=== PATIENT | male | born 1965 | race Caucasian/White ===

== ENCOUNTER → 2019-11-06 11:48 | Outpatient (CLI) | payer OTHER, SELFPAY ==
[2019-11-06 14:21] LABS: Cholesterol 297 mg/dL (140-199); Glucose 94 mg/dL (70-100); HDL Cholesterol 56 mg/dL (40-60); LDL Cholesterol Calculated 208 mg/dL (<100); Triglycerides 167 mg/dL (35-150)
== END ==
PROVIDERS: Visit Provider Family Medicine
DX: Z13.220 Encounter for screening for lipoid disorders (principal); Z13.1 Encounter for screening for diabetes mellitus
CPT/HCPCS: 36415; 80061; 82947

== ENCOUNTER → 2019-12-01 08:25 | Outpatient (CLI) | payer OTHER, SELFPAY | PROVIDERS: Visit Provider Family Medicine | DX: Z12.11 Encounter for screening for malignant neoplasm of colon (principal) ==

== ENCOUNTER → 2019-12-23 13:54 | Outpatient (CLI) | payer OTHER, SELFPAY ==
[2019-12-26 16:17] LABS: Fecal Immunochemical Test NOT DETECTED (NOT DETECTED)
== END ==
PROVIDERS: PCP Family Medicine; Referring Provider Family Medicine; Visit Provider Family Medicine
DX: Z12.11 Encounter for screening for malignant neoplasm of colon (principal)
CPT/HCPCS: 82274

== ENCOUNTER → 2020-01-14 11:59 | Outpatient (CLI) | payer OTHER, SELFPAY ==
--- NOTE | 2020-01-14 | DI.MRI.S_ITS ---
PROCEDURE: MR LUMBAR SPINE WO CON INDICATIONS: Low back pain TECHNIQUE: Noncontrast sagittal T1 spin echo and T2 fast echo, sagittal STIR, axial T1 and T2 fast spin echo through the lumbar spine. In cases with scoliosis, additional coronal T2 fast spin echo may be performed. COMPARISON: [facility] [place], CR, XR LUMBAR SPINE WITH OLBIQUES PLUS FLEXION EXTENSION, 01/11/2020, 9:20. FINDINGS: Image quality: Excellent. Alignment and Curvature: There is grade 1 anterolisthesis of L4 on L5 and grade 1 retrolisthesis of L5 on S1. Bone Marrow: Marrow is of normal overall signal. No acute vertebral body compression fractures. Spinal Cord: Conus medullaris terminates at the T12-L1 level. Visualized cord demonstrates normal signal and size. Paraspinous Soft Tissues: No paravertebral masses. There are small renal cysts. L1-L2: Normal appearance. L2-L3: Normal appearance. L3-L4: Mild loss of disc height and disc desiccation. There is diffuse posterior disc bulge and probable small posterior central annular fissure. Mild bilateral facet arthropathy. The central canal is mildly narrowed. No significant foraminal stenosis. L4-L5: Mild loss of disc height and disc desiccation. There is diffuse posterior disc bulge. Moderate to severe bilateral facet arthropathy. The central canal is mildly narrowed. No significant foraminal stenosis. L5-S1: Preserved disc height. Moderate disc desiccation. There is diffuse posterior disc bulge. Moderate to severe bilateral facet arthropathy. The central canal is patent. No significant foraminal stenosis. IMPRESSION: 1. Multilevel degenerative disc disease and facet arthropathy as described. 2. Mild central canal stenosis at L3-L4 and L4-L5. 3. No significant foraminal stenosis. Dictated by: Benson Roche M.D. on 01/14/2020 at 16:20 Approved by: Benson Roche M.D. on 01/14/2020 at 18:00
== END ==
PROVIDERS: PCP Family Medicine; Referring Provider Physical Medicine & Rehabilitation Pain Medicine; Visit Provider Physical Medicine & Rehabilitation Pain Medicine
DX: M54.5 Low back pain (principal); M43.16 Spondylolisthesis, lumbar region; M43.17 Spondylolisthesis, lumbosacral region; M51.36 Other intervertebral disc degeneration, lumbar region; M51.37 Other intervertebral disc degeneration, lumbosacral region; M47.816 Spondylosis without myelopathy or radiculopathy, lumbar region; M47.817 Spondylosis without myelopathy or radiculopathy, lumbosacral region; M48.061 Spinal stenosis, lumbar region without neurogenic claudication
CPT/HCPCS: 72148

== ENCOUNTER → 2021-08-03 12:36 | Outpatient (CLI) | payer OTHER, SELFPAY ==
--- NOTE | 2021-08-03 12:38 | DI.US.S_ITS ---
PROCEDURE: US BREAST RT LIMITED COMPARISON: None. INDICATIONS: PALPABLE LUMP FINDINGS: IMPRESSION: Dictated by: Ozzie Crain M.D. on 08/03/2021 at 14:35 Approved by: Ozzie Crain M.D. on 08/03/2021 at 14:41
--- NOTE | 2021-08-03 12:38 | DI.MG.S_ITS ---
MALE BILATERAL DIGITAL DIAGNOSTIC MAMMOGRAM 3D/2D: 08/03/2021 CLINICAL: Right breast lump. Baseline exam. No prior exams were available for comparison. There is a new 4.3 cm x 3.7 cm x 1.1 cm irregular asymmetry with an indistinct margin in the right breast at 9 o'clock anterior depth. No other significant masses, calcifications, or other findings are seen in either breast. IMPRESSION: INCOMPLETE: NEEDS ADDITIONAL IMAGING EVALUATION The new 4.3 cm x 3.7 cm x 1.1 cm irregular eccentricallly located asymmetry in the right breast is indeterminate. This exam was interpreted at Station ID: [id number]. NOTE: For mammograms, a report in lay terms will be sent to the patient. Approximately 15% of breast malignancies will not be visualized mammographically. In the management of a palpable breast mass, a negative mammogram must not discourage biopsy of a clinically suspicious lesion. Electronically Signed By: Ozzie Crain acr/:08/03/2021 15:02:35 Entry: - 08/04/2021 08:30:34 ACR BI-RADS Category 0: Incomplete [id number]
== END ==
PROVIDERS: PCP Family Medicine; Referring Provider Family Medicine; Visit Provider Family Medicine
DX: N63.15 Unspecified lump in the right breast, overlapping quadrants (principal); R92.8 Other abnormal and inconclusive findings on diagnostic imaging of breast
CPT/HCPCS: 76642; 77066; G0279

== ENCOUNTER → 2022-12-19 14:03 | Outpatient (CLI) | payer OTHER, SELFPAY ==
--- NOTE | 2022-12-19 14:05 | DI.RAD.S_ITS ---
PROCEDURE: XR LUMBAR SPINE MIN 4V INDICATIONS: lumbar pain TECHNIQUE: 5 views of the lumbar spine were acquired, including bilateral oblique views. COMPARISON: [facility] [place], [place]Y, XR LUMBAR SPINE WITH OLBIQUES PLUS FLEXION EXTENSION, 01/11/2020, 9:20. FINDINGS: Bones: Five nonrib-bearing vertebrae are present. There is 4 mm grade 1 anterolisthesis of L4 on L5. No vertebral body compression fractures. No suspicious bony lesions. Mild multilevel disc space narrowing degenerative endplate changes. Multilevel facet hypertrophy is most prominent at the L4-5 level. Soft tissues: Overlying bowel gas pattern is normal. No suspicious soft tissue calcifications. Oblique images: No pars defects. IMPRESSION: Multilevel spondylosis and degenerative spondylolisthesis. MRI of the lumbar spine could be performed for further evaluation if indicated clinically. Findings have mildly progressed when compared to the radiographs from 01/11/2020. Approved by: Jeb Sun M.D. on 12/19/2022 at 16:23
== END ==
PROVIDERS: PCP Family Medicine; Referring Provider Physician Assistant; Visit Provider Physician Assistant
DX: M47.816 Spondylosis without myelopathy or radiculopathy, lumbar region (principal); M43.16 Spondylolisthesis, lumbar region; M54.9 Dorsalgia, unspecified
CPT/HCPCS: 72110

== ENCOUNTER → 2023-01-09 12:15 | Outpatient (CLI) | payer OTHER, SELFPAY ==
--- NOTE | 2023-01-09 12:16 | DI.MRI.S_ITS ---
PROCEDURE: MR LUMBAR SPINE WO CON INDICATIONS: Chronic low back pain w/radiculopathy right leg TECHNIQUE: Noncontrast sagittal T1 spin echo and T2 fast echo, sagittal STIR, and T2 fast spin echo through the lumbar spine. In cases with scoliosis, additional coronal T2 fast spin echo may be performed. COMPARISON: [facility], CR, XR LUMBAR SPINE MIN 4V, 12/19/2022, 14:02. [facility], MR, MR LUMBAR SPINE WO CON, 01/14/2020, 12:28. FINDINGS: Image quality: Excellent. Alignment and Curvature: There is mild straightening of the normal lumbar lordosis, which may be related to positioning. There is approximately 4 mm grade 1 anterolisthesis of L4 on L5. Bone Marrow: Marrow is of normal overall signal. No acute vertebral body compression fractures. Spinal Cord: Conus medullaris terminates at the L1 level. Visualized cord demonstrates normal signal and size. Paraspinous Soft Tissues: No paravertebral masses. T12-L1: No significant disc bulging, spinal canal stenosis, or neural foraminal narrowing. L1-L2: No significant disc bulging, spinal canal stenosis, or neural foraminal narrowing. L2-L3: No significant disc bulging, spinal canal stenosis, or neural foraminal narrowing. L3-L4: Disc desiccation and mild circumferential disc bulging as well as mild bilateral facet hypertrophy, which result in mild of the bilateral neural foramina and minimal spinal canal narrowing. L4-L5: Grade 1 anterolisthesis of L4 on L5 with disc desiccation and circumferential disc bulging as well as moderate bilateral facet hypertrophy and buckling of the ligamentum flavum. Findings result in mild to moderate narrowing of the spinal canal with crowding of the bilateral lateral recesses and [id number] bilateral neural foraminal narrowing. Findings have mildly progressed when compared to the prior MRI from 01/14/2020. L5-S1: Disc desiccation and mild circumferential disc bulging, which do not result in significant spinal canal stenosis or neural foraminal narrowing. IMPRESSION: 1. At L4-5, grade 1 anterolisthesis of L4 on L5 and superimposed degenerative changes result in [id number] narrowing of the spinal canal and bilateral neural foramina. Findings have mildly progressed when compared to the MRI from 01/14/2020. 2. Additional mild multilevel degenerative changes as described in the body of the report. Approved by: Jeb Sun M.D. on 01/10/2023 at 8:58
== END ==
PROVIDERS: PCP Family Medicine; Referring Provider Physician Assistant; Visit Provider Physician Assistant
DX: M47.26 Other spondylosis with radiculopathy, lumbar region (principal); M43.16 Spondylolisthesis, lumbar region; M48.061 Spinal stenosis, lumbar region without neurogenic claudication
CPT/HCPCS: 72148

== ENCOUNTER → 2024-08-05 09:09 | Outpatient (CLI) | payer OTHER, SELFPAY ==
[2024-08-05 10:55] LABS: Cholesterol 225 mg/dL (140-199); Glucose 98 mg/dL (70-100); HDL Cholesterol 61 mg/dL (40-60); LDL Cholesterol Calculated 146 mg/dL (<100); Triglycerides 89 mg/dL (35-150)
== END ==
PROVIDERS: PCP Family Medicine; Referring Provider Family Medicine; Visit Provider Family Medicine
DX: Z13.9 Encounter for screening, unspecified (principal); Z12.11 Encounter for screening for malignant neoplasm of colon
CPT/HCPCS: 36415; 80061; 82274; 82947